=== PATIENT | female | born 2000 | race African-American/Black ===

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

== ENCOUNTER 2023-04-24 19:36 | Emergency (ER) | payer OTHER ==
[~2023-04-24] VITALS: Ht 167.6 cm; Wt 68.0 kg
[2023-04-24 19:46] VITALS: O2SAT 98
[2023-04-24] MEDS ORDERED: LEVETIRACETAM 500MG PREMIX 100 ML IV ONE ×2 (20:15)
[2023-04-24] MEDS ORDERED: LORAZEPAM 2MG/ML CPJ IV ONE (20:15)
[2023-04-24 21:23] LABS: DIFFERENTIAL COMMENT 1; HEMATOCRIT. 45.1 % (36.0-48.0); HEMOGLOBIN. 15.1 g/dL (12.0-16.0); MEAN CORPUSCULAR HEMOGLOBIN 29.3 pg (28.0-32.0); MEAN CORPUSCULAR HGB CONC 33.6 g/dL (31.0-37.0); MEAN CORPUSCULAR VOLUME 87.2 fL (81.0-99.0); MEAN PLATELET VOLUME 7.9 fl (7.4-10.4); PLATELET 304 x1000/uL (130-400); RED BLOOD CELL COUNT 5.17 mill/uL (4.2-5.4); RED CELL DISTRIBUTION WIDTH 12.8 % (11.6-14.6); WHITE BLOOD COUNT 13.7 x1000/uL (4.5-11.0)
[2023-04-24 21:38] LABS: ALANINE AMINOTRANSFERASE 32 IU/L (10-49); ALBUMIN 4.6 g/dL (3.2-4.8); ASPARTATE AMINOTRANSFERASE 34 IU/L (<34); BILIRUBIN TOTAL 0.5 mg/dL (0.1-1.0); CALCIUM 9.1 mg/dL (8.7-10.4); CARBON DIOXIDE 23 mEq/L (21-32); CHLORIDE 106 mEq/L (98-107); GLUCOSE 108 mg/dL (70-105); POTASSIUM 3.2 mEq/L (3.5-5.1); PROTEIN TOTAL 7.8 g/dL (6.0-8.3); SODIUM 139 mEq/L (136-145); UREA NITROGEN BLOOD 7 mg/dL (9-23)
[2023-04-24 21:42] LABS: ETHANOL BLOOD < 10 mg/dL (<10)
[2023-04-24 21:43] LABS: PLATELET ESTIMATE NORMAL
[2023-04-24 21:47] LABS: HCG SCREEN NEGATIVE
[2023-04-24] MEDS ORDERED: LEVETIRACETAM 500MG PREMIX 100 ML IV NR (21:54)
[2023-04-24] MEDS ORDERED: LORAZEPAM 4MG/ML VIAL IV NR (21:56)
[2023-04-25] MEDS ORDERED: ONDA4TAB50 MT (00:42)
[2023-04-25] MEDS ORDERED: TOPUD MT (00:42)
[2023-04-25] MEDS ORDERED: KEPP500 MT (00:42)
[2023-04-25] MEDS ORDERED: SODIUM CHLORIDE 0.9% 1,000 ML IV ONE ×2 (01:00)
[2023-04-25] MEDS ORDERED: ACETAMINOPHEN 325MG TABLET PO ONE ×2 (01:00→01:15)
[2023-04-25] MEDS ORDERED: IBUPROFEN 600MG TABLET PO ONE (01:15)
[2023-04-25 05:26] VITALS: BP 110/75; PULSE 95; RESP 16; TEMP 98
== END 2023-04-25 05:27 | disposition home or self-care (01) ==
LOC: ER 19:36
DX: G40.909 Epilepsy, unspecified, not intractable, without status epilepticus (principal)
CPT/HCPCS: 80053; 80320; 84703; 85025; 36415; 70450; 96365; 96375; 99285; 74176; 96361; J1953; J2060; J7030; G0480